=== PATIENT | male | born 1990 | race African-American/Black ===

== ENCOUNTER → 2022-07-08 09:44 | Outpatient (BNVA) | payer SELFPAY | PROVIDERS: Visit Provider Physician Assistant Medical | DX: Z02.1 Encounter for pre-employment examination (principal); R76.11 Nonspecific reaction to tuberculin skin test without active tuberculosis ==

== ENCOUNTER → 2022-07-14 10:24 | Outpatient (BNVA) | payer SELFPAY | DX: Z01.84 Encounter for antibody response examination (principal) | CPT/HCPCS: 90710 ==